=== PATIENT | male | born 1990 | race Caucasian/White ===

== ENCOUNTER 2019-01-10 19:30 | Emergency (ER) | payer SELFPAY ==
[~2019-01-10] VITALS: Ht 172.7 cm; Wt 59.0 kg
--- NOTE | 2019-01-10 19:30 | NUR ---
PT BIB [facility], PREBOOK. TAKEN TO CHAIR E
[2019-01-10 19:46] VITALS: BP 138/82
--- NOTE | 2019-01-10 19:54 | NUR ---
Dr. Valladares evaluating patient
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
[2019-01-10 20:09] VITALS: BP 138/82
--- NOTE | 2019-01-10 20:09 | NUR ---
PATIENT BIBPATIENT MEDICALLY CLEARED AND RELEASED IN CUSTODY IN STABLE CONDITION. ORIGINAL PRE-BOOK FORM AND COPY GIVEN TO OFFICER. DISCHARGE INSTRUCTIONS GIVEN TO OFFICER AND EXPLAINED TO PATIENT. PT VERBALIZED UNDERSTANDING.
== END 2019-01-10 20:09 ==
LOC: MED 19:30
DX: M54.2 Cervicalgia (principal); Z02.89 Encounter for other administrative examinations; V89.2XXA Person injured in unspecified motor-vehicle accident, traffic, initial encounter; Y93.89 Activity, other specified; Y92.89 Other specified places as the place of occurrence of the external cause; Y99.8 Other external cause status
CPT/HCPCS: 99283